=== PATIENT | male | born 1955 | race Caucasian/White ===

== ENCOUNTER 2017-07-05 02:55 | Inpatient (IN) | payer OTHER ==
[2017-07-05] MEDS ORDERED: morphine 2 MG INJ IV (04:30)
[2017-07-05] MEDS ORDERED: ACETAMINOPHEN 325 MG TAB PO (04:30)
[2017-07-05] MEDS ORDERED: ONDANSETRON 4 MG INJ IV (04:30)
[2017-07-05] MEDS ORDERED: ALBUTEROL/IPRATROPIUM (NEB) 3 ML AMP HHN (04:30)
[2017-07-05] MEDS ORDERED: NACL 0.9% 3 ML SYG IV (04:30)
[2017-07-05] MEDS: PANTOPRAZOLE (EC) 40 MG TAB PO (05:23)
[2017-07-05] MEDS: LEVOFLOXACIN 500MG/D5W (PMX) 100 ML IVPB (05:23)
[2017-07-05 05:49] LABS: ADD MAN DIFF? NO
[2017-07-05 05:55] LABS: WHITE BLOOD COUNT 9.1 10^3/ul (4.8-10.8)
[2017-07-05 05:55] LABS: BASOPHILS % 0.3 % (0.0-2.0); EOSINOPHILS # 0.2 10^3/ul (0.0-0.5); EOSINOPHILS % 2.2 % (0.0-7.0); HEMATOCRIT 35.7 % (42.0-52.0); HEMOGLOBIN 11.6 g/dl (14.0-18.0); LYMPHOCYTES # 1.9 10^3/ul (0.8-2.9); LYMPHOCYTES % 20.6 % (15.0-51.0); MEAN CORPUSCULAR HEMOGLOBIN 28.9 pg (29.0-33.0); MEAN CORPUSCULAR HGB CONC 32.5 g/dl (32.0-37.0); MEAN PLATELET VOLUME 9.9 fl (7.4-10.4); MONOCYTE # 0.7 10^3/ul (0.3-0.9); MONOCYTES % 7.5 % (0.0-11.0); NEUTROPHIL # 6.3 10^3/ul (1.6-7.5); NEUTROPHILS % 69.1 % (39.0-77.0); PLATELET COUNT 224 10^3/UL (140-415); RED BLOOD COUNT 4.01 10^6/ul (4.70-6.10); RED CELL DISTRIBUTION WIDTH 12.7 % (11.5-14.5)
[2017-07-05 06:11] LABS: ALANINE AMINOTRANSFERASE 28 IU/L (13-69); ALBUMIN/GLOBULIN RATIO 1.15; ALKALINE PHOSPHATASE 70 IU/L (42-121); ANION GAP 8 (8-16); ASPARTATE AMINO TRANSFERASE 15 IU/L (15-46); BILIRUBIN,INDIRECT 0.4 mg/dl (0-1.1); BILIRUBIN,TOTAL 0.4 mg/dl (0.2-1.3); BLOOD UREA NITROGEN 15 mg/dl (7-20); CALCIUM 8.2 mg/dl (8.4-10.2); CARBON DIOXIDE 32 mmol/L (21-31); CHLORIDE 110 mmol/L (97-110); CHOL/HDL RATIO 3.7 RATIO; CHOLESTEROL 149 mg/dl (100-200); CREATININE 0.92 mg/dl (0.61-1.24); GLUCOSE 133 mg/dl (70-220); HDL CHOLESTEROL 40 mg/dl (30-78); LDL CHOLESTEROL,CALCULATED 94 mg/dl; MAGNESIUM 1.9 mg/dl (1.7-2.5); PHOSPHORUS 3.7 mg/dl (2.5-4.9); POTASSIUM 4.2 mmol/L (3.5-5.1); SODIUM 146 mmol/L (135-144); TOTAL PROTEIN 5.6 g/dl (6.1-8.1); TRIGLYCERIDES 74 mg/dl (0-149)
[2017-07-05 06:32] LABS: HEMOGLOBIN A1C 6.7 % (0-5.9)
[2017-07-05] MEDS: ASPIRIN (EC) 81 MG TAB PO (08:48)
[2017-07-05] MEDS: metFORMIN 500 MG TAB PO (08:49)
[2017-07-05] MEDS: DOCUSATE SODIUM 100 MG CAP PO ×2 (08:49→20:41)
[2017-07-05] MEDS: METHYLPREDNISOLONE 40 MG INJ IV ×2 (08:49→20:40)
[2017-07-05] MEDS: HEPARIN 5,000 UNIT/0.5 ML VIAL SC ×2 (08:50→20:45)
[2017-07-05] MEDS: INSULIN ASPART [NOVOLOG] 3 ML PEN SC ×3 (12:44→20:46)
[2017-07-05] MEDS: ALBUTEROL/IPRATROPIUM (NEB) 3 ML AMP HHN ×3 (13:29→20:34)
[2017-07-05] MEDS: ATORVASTATIN 10 MG TAB PO (20:41)
[2017-07-06] MEDS: ALBUTEROL/IPRATROPIUM (NEB) 3 ML AMP HHN ×6 (00:27→21:10)
[2017-07-06] MEDS: GUAIFENESIN/DM 5ML CUP PO ×2 (01:18→05:49)
[2017-07-06] MEDS: ACCU-CHEK XX (01:21)
[2017-07-06] MEDS: PANTOPRAZOLE (EC) 40 MG TAB PO (05:49)
[2017-07-06] MEDS: LEVOFLOXACIN 500MG/D5W (PMX) 100 ML IVPB (05:49)
[2017-07-06 06:01] LABS: ADD MAN DIFF? NO
[2017-07-06 06:06] LABS: BASOPHILS % 0.1 % (0.0-2.0); HEMATOCRIT 38.8 % (42.0-52.0); HEMOGLOBIN 12.8 g/dl (14.0-18.0); LYMPHOCYTES # 0.9 10^3/ul (0.8-2.9); LYMPHOCYTES % 7.2 % (15.0-51.0); MEAN CORPUSCULAR HEMOGLOBIN 29.2 pg (29.0-33.0); MEAN CORPUSCULAR VOLUME 88.6 fl (82.0-101.0); MEAN PLATELET VOLUME 10.1 fl (7.4-10.4); MONOCYTE # 0.3 10^3/ul (0.3-0.9); MONOCYTES % 2.3 % (0.0-11.0); NEUTROPHIL # 10.8 10^3/ul (1.6-7.5); PLATELET COUNT 241 10^3/UL (140-415); RED BLOOD COUNT 4.38 10^6/ul (4.70-6.10); RED CELL DISTRIBUTION WIDTH 12.5 % (11.5-14.5)
[2017-07-06 06:30] LABS: ANION GAP 11 (8-16); BLOOD UREA NITROGEN 21 mg/dl (7-20); CALCIUM 8.9 mg/dl (8.4-10.2); CARBON DIOXIDE 28 mmol/L (21-31); CHLORIDE 107 mmol/L (97-110); CREATININE 0.91 mg/dl (0.61-1.24); GLUCOSE 215 mg/dl (70-220); MAGNESIUM 1.8 mg/dl (1.7-2.5); PHOSPHORUS 4.9 mg/dl (2.5-4.9); POTASSIUM 4.7 mmol/L (3.5-5.1); SODIUM 141 mmol/L (135-144)
[2017-07-06] MEDS: DOCUSATE SODIUM 100 MG CAP PO ×2 (08:20→20:32)
[2017-07-06] MEDS: ASPIRIN (EC) 81 MG TAB PO (08:20)
[2017-07-06] MEDS: predniSONE 20 MG TAB PO (08:20)
[2017-07-06] MEDS: INSULIN ASPART [NOVOLOG] 3 ML PEN SC ×4 (08:29→20:40)
[2017-07-06] MEDS: HEPARIN 5,000 UNIT/0.5 ML VIAL SC ×2 (08:29→20:40)
[2017-07-06] MEDS: LISINOPRIL 5 MG TAB PO (12:39)
[2017-07-06] MEDS: FUROSEMIDE 20 MG INJ IV (12:40)
[2017-07-06 13:01] LABS: B-TYPE NATRIURETIC PEPTIDE 627 PG/ML (0-125)
[2017-07-06] MEDS ORDERED: GLUCOSE GEL 15 GRAM TUBE PO ×2 (18:00)
[2017-07-06] MEDS ORDERED: GLUCOSE GEL 15 GRAM TUBE BUCCAL (18:00)
[2017-07-06] MEDS ORDERED: GLUCAGON 1 MG INJ IM (18:00)
[2017-07-06] MEDS ORDERED: DEXTROSE 50% 50 ML SYRINGE IV ×2 (18:00)
[2017-07-06 18:15] LABS: HEMOGLOBIN A1C 6.8 % (0-5.9)
[2017-07-06] MEDS: INSULIN GLARGINE [LANtus] 3 ML PEN SC (18:48)
[2017-07-06] MEDS: ATORVASTATIN 10 MG TAB PO (20:32)
[2017-07-07] MEDS: ALBUTEROL/IPRATROPIUM (NEB) 3 ML AMP HHN ×4 (01:15→12:34)
[2017-07-07] MEDS: ACCU-CHEK XX (02:00)
[2017-07-07] MEDS: GUAIFENESIN/DM 5ML CUP PO ×3 (02:02→10:39)
[2017-07-07] MEDS: PANTOPRAZOLE (EC) 40 MG TAB PO (06:05)
[2017-07-07] MEDS: LEVOFLOXACIN 500MG/D5W (PMX) 100 ML IVPB (06:05)
[2017-07-07 06:29] LABS: ADD MAN DIFF? NO
[2017-07-07 06:33] LABS: BASOPHILS % 0.2 % (0.0-2.0); EOSINOPHILS % 0.3 % (0.0-7.0); HEMATOCRIT 38.9 % (42.0-52.0); HEMOGLOBIN 12.9 g/dl (14.0-18.0); LYMPHOCYTES % 16.6 % (15.0-51.0); MEAN CORPUSCULAR HEMOGLOBIN 29.3 pg (29.0-33.0); MEAN CORPUSCULAR HGB CONC 33.2 g/dl (32.0-37.0); MEAN CORPUSCULAR VOLUME 88.4 fl (82.0-101.0); MEAN PLATELET VOLUME 10.2 fl (7.4-10.4); MONOCYTES % 8.2 % (0.0-11.0); NEUTROPHIL # 8.8 10^3/ul (1.6-7.5); NEUTROPHILS % 74.3 % (39.0-77.0); PLATELET COUNT 260 10^3/UL (140-415); RED CELL DISTRIBUTION WIDTH 12.7 % (11.5-14.5)
[2017-07-07 06:33] LABS: WHITE BLOOD COUNT 11.9 10^3/ul (4.8-10.8)
[2017-07-07 06:59] LABS: PHOSPHORUS 4.8 mg/dl (2.5-4.9)
[2017-07-07 06:59] LABS: MAGNESIUM 1.9 mg/dl (1.7-2.5)
[2017-07-07 07:08] LABS: ALANINE AMINOTRANSFERASE 21 IU/L (13-69); ALBUMIN 3.5 g/dl (3.3-4.9); ALBUMIN/GLOBULIN RATIO 1.12; ALKALINE PHOSPHATASE 76 IU/L (42-121); ANION GAP 14 (8-16); ASPARTATE AMINO TRANSFERASE 14 IU/L (15-46); BILIRUBIN,INDIRECT 0.2 mg/dl (0-1.1); BILIRUBIN,TOTAL 0.2 mg/dl (0.2-1.3); BLOOD UREA NITROGEN 28 mg/dl (7-20); CALCIUM 8.7 mg/dl (8.4-10.2); CARBON DIOXIDE 30 mmol/L (21-31); CHLORIDE 102 mmol/L (97-110); CREATININE 1.14 mg/dl (0.61-1.24); GLUCOSE 188 mg/dl (70-220); POTASSIUM 4.2 mmol/L (3.5-5.1); SODIUM 142 mmol/L (135-144); TOTAL PROTEIN 6.6 g/dl (6.1-8.1)
[2017-07-07] MEDS: INSULIN ASPART [NOVOLOG] 3 ML PEN SC ×2 (08:03→12:24)
[2017-07-07] MEDS: INSULIN GLARGINE [LANtus] 3 ML PEN SC (08:04)
[2017-07-07] MEDS: DOCUSATE SODIUM 100 MG CAP PO (09:23)
[2017-07-07] MEDS: LISINOPRIL 5 MG TAB PO (09:23)
[2017-07-07] MEDS: ASPIRIN (EC) 81 MG TAB PO (09:23)
[2017-07-07] MEDS: FUROSEMIDE 20 MG INJ IV (09:24)
[2017-07-07] MEDS: HEPARIN 5,000 UNIT/0.5 ML VIAL SC (09:30)
[2017-07-07] MEDS: FLUCONAZOLE 100 MG TAB PO (10:39)
[2017-07-08] MEDS ORDERED: FLUCONAZOLE 100 MG TAB PO (09:00)
== END 2017-07-07 16:15 | disposition home or self-care (01) | DRG 291 ==
LOC: MS2 02:55
PROVIDERS: Internal Medicine
PROC: 3E0F73Z Introduction of Anti-inflammatory into Respiratory Tract, Via Natural or Artificial Opening (ICD-10-PCS; principal; 2017-07-05)
DX: I50.21 Acute systolic (congestive) heart failure (principal); J96.01 Acute respiratory failure with hypoxia; J18.9 Pneumonia, unspecified organism; Z72.0 Tobacco use; I25.5 Ischemic cardiomyopathy; I25.10 Atherosclerotic heart disease of native coronary artery without angina pectoris; E78.5 Hyperlipidemia, unspecified; E11.9 Type 2 diabetes mellitus without complications
CPT/HCPCS: 71045; 80048; 80053; 80061; 82962; 83036; 83735; 83880; 84100; 85025; 87070; 93306; 94640; 94664